=== PATIENT | female | born 1940 | race African-American/Black ===

== ENCOUNTER 2022-05-01 07:12 | Inpatient (IN) | payer OTHER, MEDICAID ==
[~2022-05-01] VITALS: Ht 160 cm; Wt 53.3 kg
[2022-05-01] MEDS ORDERED: ACETAMINOPHEN 325MG TABLET PO ONE (07:30)
[2022-05-01] MEDS ORDERED: IOHEXOL-350 100 ML BOTTLE ONE (08:16)
[2022-05-01 08:37] LABS: BASOPHILS % 0.5 % (0.0-2.0); EOSINOPHILS % 0.9 % (0.0-5.0); HEMATOCRIT. 36.2 % (36.0-48.0); LYMPHOCYTES % 14.8 % (20.0-50.0); MEAN CORPUSCULAR HEMOGLOBIN 33.1 pg (28.0-32.0); MEAN PLATELET VOLUME 6.9 fl (7.4-10.4); MONOCYTES % 8.4 % (2.0-8.0); NEUTROPHILS % 75.4 % (40.0-76.0); PLATELET 249 x1000/uL (130-400); RED BLOOD CELL COUNT 3.62 mill/uL (4.2-5.4); RED CELL DISTRIBUTION WIDTH 12.9 % (11.6-14.6)
[2022-05-01 08:48] LABS: CHLORIDE 111 mEq/L (98-107)
[2022-05-01 08:59] LABS: CREATINE KINASE 201 IU/L (26-192); ETHANOL BLOOD < 10 mg/dL
[2022-05-01] MEDS ORDERED: IPRATROPIUM/ALBUTEROL 0.5-3(2.5)MG/3ML NEB HHN PRN (10:45)
[2022-05-01] MEDS ORDERED: ONDANSETRON HCL 4MG/2ML INJ IV PRN (10:45)
[2022-05-01] MEDS ORDERED: ACETAMINOPHEN 325MG TABLET PO PRN ×2 (10:45)
[2022-05-01] MEDS ORDERED: GUAIFENESIN 200MG/10ML SUGAR FREE UDC PO PRN (10:45)
[2022-05-01] MEDS ORDERED: MAGNESIUM/ALUMINUM HYDROXIDE/SIMETHICONE 30ML UDC PO PRN (10:45)
[2022-05-01] MEDS ORDERED: CLONIDINE 0.1MG TABLET PO PRN ×2 (10:45→17:45)
[2022-05-01] MEDS ORDERED: HYDROCODONE/ACETAMINOPHEN 5/325MG TABLET PO PRN (10:45)
[2022-05-01] MEDS ORDERED: DOCUSATE SODIUM 100MG CAPSULE PO PRN (10:45)
[2022-05-01] MEDS: ENOXAPARIN 30MG/0.3ML SYR SUBCUT SCH (11:00)
[2022-05-01] MEDS ORDERED: NALOXONE HCL 0.4MG/ML VIAL IV PRN (11:00)
[2022-05-01] MEDS ORDERED: ASPIRIN 325MG EC TABLET PO NR (11:30)
[2022-05-01] MEDS: FAMOTIDINE 20MG/2ML VIAL IV SCH (11:30)
[2022-05-01 16:30] VITALS: BP 208/100
[2022-05-01] MEDS ORDERED: CLONIDINE 0.1MG TABLET PO NR (17:00)
[2022-05-01 18:00] VITALS: BP 192/90
[2022-05-01 20:00] VITALS: BP 184/90
[2022-05-01] MEDS ORDERED: IPRATROPIUM BROMIDE (0.02%) 0.5MG/2.5ML NEB HHN PRN (20:30)
[2022-05-01] MEDS ORDERED: ALBUTEROL (0.083%) 2.5MG/3ML NEB HHN PRN (20:30)
[2022-05-02] VITALS: BP 212/116
[2022-05-02] MEDS: HYDRALAZINE 20MG/ML VIAL IV PRN (00:43)
[2022-05-02 04:00] VITALS: BP 154/82
[2022-05-02 06:41] LABS: BASOPHILS % 0.2 % (0.0-2.0); EOSINOPHILS % 0.5 % (0.0-5.0); HEMATOCRIT. 38.2 % (36.0-48.0); HEMOGLOBIN. 13.1 g/dL (12.0-16.0); LYMPHOCYTES % 12.6 % (20.0-50.0); MEAN CORPUSCULAR HEMOGLOBIN 33.5 pg (28.0-32.0); MEAN CORPUSCULAR VOLUME 97.7 fL (81.0-99.0); MEAN PLATELET VOLUME 7.3 fl (7.4-10.4); MONOCYTES % 10.1 % (2.0-8.0); NEUTROPHILS % 76.6 % (40.0-76.0); PLATELET 262 x1000/uL (130-400); RED BLOOD CELL COUNT 3.91 mill/uL (4.2-5.4)
[2022-05-02 07:00] LABS: CHLORIDE 104 mEq/L (98-107)
[2022-05-02 07:16] LABS: HDL CHOLESTEROL 92 mg/dL (40-59); LDL CHOLESTEROL 82 mg/dL (5-100); T4 FREE 0.78 ng/dL (0.76-1.46)
[2022-05-02 08:00] VITALS: BP 143/86
[2022-05-02] MEDS: FAMOTIDINE 20MG/2ML VIAL IV SCH (08:38)
[2022-05-02] MEDS: ASPIRIN 81MG TABLET PO SCH (08:38)
[2022-05-02] MEDS: KCL 20MEQ/100ML PREMIX 100 ML IV SCH ×2 (10:30→12:40)
[2022-05-02] MEDS: ENOXAPARIN 30MG/0.3ML SYR SUBCUT SCH (12:40)
[2022-05-02] MEDS: DEXT 5%/0.45% NACL 1000ML 1,000 ML IV SCH (14:34)
[2022-05-02 16:00] VITALS: BP 130/75
[2022-05-02 18:14] LABS: CHLORIDE 108 mEq/L (98-107)
[2022-05-02 20:00] VITALS: BP 162/93
[2022-05-02] MEDS ORDERED: ATORVASTATIN CALCIUM 20MG TABLET PO SCH (21:00)
[2022-05-02] MEDS: ATORVASTATIN CALCIUM 20MG TABLET PO SCH (21:50)
[2022-05-03] VITALS: BP 198/96
[2022-05-03] MEDS: HYDRALAZINE 20MG/ML VIAL IV PRN ×3 (00:50→18:15)
[2022-05-03 04:00] VITALS: BP 179/88
[2022-05-03] MEDS: DEXT 5%/0.45% NACL 1000ML 1,000 ML IV SCH ×2 (06:24→23:21)
[2022-05-03 08:00] VITALS: BP 183/91
[2022-05-03 08:03] LABS: CHLORIDE 108 mEq/L (98-107)
[2022-05-03] MEDS: FAMOTIDINE 20MG/2ML VIAL IV SCH (08:38)
[2022-05-03] MEDS: ASPIRIN 81MG TABLET PO SCH ×2 (08:39→09:00)
[2022-05-03] MEDS: AMLODIPINE 5MG TABLET PO SCH ×2 (10:00→12:10)
[2022-05-03 12:00] VITALS: BP 153/75
[2022-05-03] MEDS: ENOXAPARIN 30MG/0.3ML SYR SUBCUT SCH (12:10)
[2022-05-03 16:00] VITALS: BP 159/93
[2022-05-03 20:00] VITALS: BP 149/81
[2022-05-03] MEDS: ATORVASTATIN CALCIUM 20MG TABLET PO SCH (21:00)
[2022-05-04] VITALS: BP 164/81
[2022-05-04] MEDS: HYDRALAZINE 20MG/ML VIAL IV PRN (01:19)
[2022-05-04 04:00] VITALS: BP 152/94
[2022-05-04 07:22] LABS: CHLORIDE 104 mEq/L (98-107)
[2022-05-04 08:00] VITALS: BP 157/79
[2022-05-04] MEDS: FAMOTIDINE 20MG/2ML VIAL IV SCH (09:06)
[2022-05-04] MEDS: CLOPIDOGREL 75MG TABLET PO SCH (09:07)
[2022-05-04] MEDS: AMLODIPINE 5MG TABLET PO SCH (09:07)
[2022-05-04] MEDS: ASPIRIN 81MG TABLET PO SCH (09:08)
[2022-05-04] MEDS: ENOXAPARIN 30MG/0.3ML SYR SUBCUT SCH (11:00)
[2022-05-04 16:05] VITALS: BP 162/78
[2022-05-04] MEDS: DEXT 5%/0.45% NACL 1000ML 1,000 ML IV SCH (16:24)
[2022-05-04 18:20] VITALS: BP 151/79
[2022-05-04 20:00] VITALS: BP 146/78
[2022-05-04] MEDS: ATORVASTATIN CALCIUM 20MG TABLET PO SCH (21:00)
[2022-05-05] VITALS (7 sets, daily range): BP systolic 108–167; BP diastolic 49–85
[2022-05-05 08:02] LABS: HEMOGLOBIN. 11.5 g/dL (12.0-16.0); MEAN CORPUSCULAR HEMOGLOBIN 34.4 pg (28.0-32.0); MEAN CORPUSCULAR VOLUME 98.4 fL (81.0-99.0); MEAN PLATELET VOLUME 7.1 fl (7.4-10.4); PLATELET 233 x1000/uL (130-400); RED BLOOD CELL COUNT 3.36 mill/uL (4.2-5.4); RED CELL DISTRIBUTION WIDTH 12.3 % (11.6-14.6)
[2022-05-05] MEDS: ASPIRIN 81MG TABLET PO SCH (08:13)
[2022-05-05] MEDS: AMLODIPINE 5MG TABLET PO SCH (08:13)
[2022-05-05] MEDS: CLOPIDOGREL 75MG TABLET PO SCH (08:13)
[2022-05-05] MEDS: FAMOTIDINE 20MG TABLET PO SCH (08:13)
[2022-05-05] MEDS: DEXT 5%/0.45% NACL 1000ML 1,000 ML IV SCH (08:18)
[2022-05-05 08:49] LABS: CHLORIDE 111 mEq/L (98-107)
[2022-05-05 08:56] LABS: PHOSPHORUS 2.6 mg/dL (2.5-4.9)
[2022-05-05] MEDS: ENOXAPARIN 30MG/0.3ML SYR SUBCUT SCH (11:40)
[2022-05-05] MEDS: HYDRALAZINE 20MG/ML VIAL IV PRN (13:22)
[2022-05-05] MEDS: ATORVASTATIN CALCIUM 20MG TABLET PO SCH (21:03)
[2022-05-05 21:46] LABS: PLATELET ESTIMATE NORMAL
[2022-05-06] VITALS: BP 147/60
[2022-05-06] MEDS: DEXT 5%/0.45% NACL 1000ML 1,000 ML IV SCH (01:50)
[2022-05-06 04:00] VITALS: BP 115/57
[2022-05-06 08:00] VITALS: BP 176/72
[2022-05-06 08:25] LABS: CHLORIDE 110 mEq/L (98-107)
[2022-05-06] MEDS: ASPIRIN 81MG TABLET PO SCH (09:10)
[2022-05-06] MEDS: CLOPIDOGREL 75MG TABLET PO SCH (09:12)
[2022-05-06] MEDS: FAMOTIDINE 20MG TABLET PO SCH (09:12)
[2022-05-06] MEDS: AMLODIPINE 5MG TABLET PO SCH (09:12)
[2022-05-06] MEDS: HYDRALAZINE 20MG/ML VIAL IV PRN ×2 (09:14→17:16)
[2022-05-06] MEDS: ENOXAPARIN 30MG/0.3ML SYR SUBCUT SCH (10:16)
[2022-05-06 12:00] VITALS: BP 149/70
[2022-05-06 16:00] VITALS: BP 149/83
[2022-05-06] MEDS: LOSARTAN POTASSIUM 25 MG TABLET PO SCH ×2 (17:00→17:15)
[2022-05-06 20:00] VITALS: BP 148/62
[2022-05-06] MEDS: ATORVASTATIN CALCIUM 20MG TABLET PO SCH (21:16)
[2022-05-07 00:31] VITALS: BP 107/65
[2022-05-07 04:00] VITALS: BP 177/80
[2022-05-07] MEDS: HYDRALAZINE 20MG/ML VIAL IV PRN (06:04)
[2022-05-07 08:06] VITALS: BP 133/61
[2022-05-07] MEDS: FAMOTIDINE 20MG TABLET PO SCH (08:11)
[2022-05-07] MEDS: ASPIRIN 81MG TABLET PO SCH (08:12)
[2022-05-07] MEDS: AMLODIPINE 5MG TABLET PO SCH (08:12)
[2022-05-07] MEDS: CLOPIDOGREL 75MG TABLET PO SCH (08:12)
[2022-05-07] MEDS ORDERED: LOSA25TA3 PO (08:52)
[2022-05-07] MEDS ORDERED: ATOR20TA PO (08:52)
[2022-05-07] MEDS ORDERED: AMLO5TAB88 PO (08:52)
[2022-05-07] MEDS ORDERED: CLOP75TA15 PO (08:52)
[2022-05-07] MEDS ORDERED: ASPI-1160 PO (08:52)
[2022-05-07 09:42] LABS: VITAMIN B12 SERUM 634 pg/mL (211-911)
[2022-05-07 12:00] VITALS: BP 125/62
[2022-05-07] MEDS: ENOXAPARIN 30MG/0.3ML SYR SUBCUT SCH (13:08)
[2022-05-07 16:00] VITALS: BP 148/83
[2022-05-07] MEDS: LOSARTAN POTASSIUM 25 MG TABLET PO SCH (18:31)
[2022-05-07 20:00] VITALS: BP 153/77
[2022-05-07] MEDS: ATORVASTATIN CALCIUM 20MG TABLET PO SCH (21:13)
[2022-05-08] VITALS: BP 110/90
[2022-05-08 04:00] VITALS: BP 150/77
[2022-05-08 08:00] VITALS: BP 148/68
[2022-05-08] MEDS: CLOPIDOGREL 75MG TABLET PO SCH (09:01)
[2022-05-08] MEDS: ASPIRIN 81MG TABLET PO SCH (09:01)
[2022-05-08] MEDS: FAMOTIDINE 20MG TABLET PO SCH (09:01)
[2022-05-08] MEDS: AMLODIPINE 5MG TABLET PO SCH (09:02)
[2022-05-08 12:00] VITALS: BP 127/78
[2022-05-08] MEDS: ENOXAPARIN 30MG/0.3ML SYR SUBCUT SCH (12:19)
[2022-05-08 16:00] VITALS: BP 137/61
[2022-05-08] MEDS: LOSARTAN POTASSIUM 25 MG TABLET PO SCH (17:22)
[2022-05-08 20:00] VITALS: BP 115/70
[2022-05-08] MEDS: ATORVASTATIN CALCIUM 20MG TABLET PO SCH (22:27)
[2022-05-09] VITALS (7 sets, daily range): BP systolic 107–171; BP diastolic 65–87
[2022-05-09] MEDS: AMLODIPINE 5MG TABLET PO SCH (09:00)
[2022-05-09] MEDS: FAMOTIDINE 20MG TABLET PO SCH (09:00)
[2022-05-09] MEDS: CLOPIDOGREL 75MG TABLET PO SCH (09:46)
[2022-05-09] MEDS: ASPIRIN 81MG TABLET PO SCH (09:46)
[2022-05-09] MEDS: ENOXAPARIN 30MG/0.3ML SYR SUBCUT SCH (12:31)
[2022-05-09] MEDS: LOSARTAN POTASSIUM 25 MG TABLET PO SCH (18:05)
[2022-05-09] MEDS: ATORVASTATIN CALCIUM 20MG TABLET PO SCH (21:03)
[2022-05-10] VITALS: BP 130/60
[2022-05-10 04:00] VITALS: BP 127/75
[2022-05-10 08:19] VITALS: BP 136/81
[2022-05-10] MEDS: CLOPIDOGREL 75MG TABLET PO SCH (10:14)
[2022-05-10] MEDS: ASPIRIN 81MG TABLET PO SCH (10:14)
[2022-05-10] MEDS: FAMOTIDINE 20MG TABLET PO SCH (10:14)
[2022-05-10] MEDS: AMLODIPINE 5MG TABLET PO SCH (10:14)
[2022-05-10] MEDS: ENOXAPARIN 30MG/0.3ML SYR SUBCUT SCH (10:15)
[2022-05-10 12:15] VITALS: BP 147/63
[2022-05-10 15:59] VITALS: BP 138/71
[2022-05-10] MEDS: LOSARTAN POTASSIUM 25 MG TABLET PO SCH (18:05)
[2022-05-10 20:00] VITALS: BP 125/71
[2022-05-10] MEDS: ATORVASTATIN CALCIUM 20MG TABLET PO SCH ×2 (21:01→21:02)
[2022-05-11] VITALS: BP 142/73
[2022-05-11 04:00] VITALS: BP 145/71
[2022-05-11 06:06] LABS: HEMOGLOBIN. 9.9 g/dL (12.0-16.0); MEAN CORPUSCULAR HEMOGLOBIN 33.7 pg (28.0-32.0); MEAN CORPUSCULAR VOLUME 98.9 fL (81.0-99.0); MEAN PLATELET VOLUME 7.5 fl (7.4-10.4); PLATELET 301 x1000/uL (130-400); RED BLOOD CELL COUNT 2.93 mill/uL (4.2-5.4); RED CELL DISTRIBUTION WIDTH 12.6 % (11.6-14.6)
[2022-05-11 08:00] VITALS: BP 122/70
[2022-05-11] MEDS: ASPIRIN 81MG TABLET PO SCH (08:08)
[2022-05-11] MEDS: FAMOTIDINE 20MG TABLET PO SCH (08:08)
[2022-05-11] MEDS: CLOPIDOGREL 75MG TABLET PO SCH (08:08)
[2022-05-11] MEDS: AMLODIPINE 5MG TABLET PO SCH (08:08)
[2022-05-11 09:09] LABS: CHLORIDE 111 mEq/L (98-107)
[2022-05-11 09:16] LABS: PHOSPHORUS 2.8 mg/dL (2.5-4.9)
[2022-05-11] MEDS: ENOXAPARIN 30MG/0.3ML SYR SUBCUT SCH (11:22)
[2022-05-11 12:00] VITALS: BP 115/80
[2022-05-11 16:00] VITALS: BP 117/78
[2022-05-11] MEDS: LOSARTAN POTASSIUM 25 MG TABLET PO SCH (16:47)
[2022-05-11 17:36] LABS: PLATELET ESTIMATE NORMAL
[2022-05-11 20:00] VITALS: BP 139/68
[2022-05-11] MEDS: ATORVASTATIN CALCIUM 20MG TABLET PO SCH (20:57)
[2022-05-12] VITALS: BP 136/67
[2022-05-12 04:00] VITALS: BP 117/77
[2022-05-12 08:00] VITALS: BP 126/73
[2022-05-12] MEDS: FAMOTIDINE 20MG TABLET PO SCH (08:56)
[2022-05-12] MEDS: ASPIRIN 81MG TABLET PO SCH (08:56)
[2022-05-12] MEDS: CLOPIDOGREL 75MG TABLET PO SCH (09:00)
[2022-05-12] MEDS: AMLODIPINE 5MG TABLET PO SCH (09:00)
[2022-05-12 12:00] VITALS: BP 139/67
[2022-05-12] MEDS ORDERED: HYDRALAZINE 10 MG in SODIUM CHLORIDE 0.9% 49.5 ML IV PRN (13:30)
[2022-05-12 16:00] VITALS: BP 136/65
[2022-05-12 16:25] VITALS: BP 139/67
== END 2022-05-12 17:26 | DRG 64 ==
LOC: ER 07:12 → EDBEDREQ 07:40 → SUPCPDRO 10:24 → 7WST 10:35 → EDBEDREQ 10:35 → EDBEDREQTM 10:35 → UNDODISIN 05-08 19:20 → 6EST 05-11 17:25
PROVIDERS: ADMIT Internal Medicine; ATTEND Internal Medicine
PROC: 4A00X4Z Measurement of Central Nervous Electrical Activity, External Approach (ICD-10-PCS; principal; 2022-05-05)
DX: I63.9 Cerebral infarction, unspecified (principal); G93.41 Metabolic encephalopathy; E87.6 Hypokalemia; G51.0 Bell's palsy; H54.8 Legal blindness, as defined in USA; I10 Essential (primary) hypertension; Z20.822 Contact with and (suspected) exposure to COVID-19; Z86.73 Personal history of transient ischemic attack (TIA), and cerebral infarction without residual deficits
CPT/HCPCS: 36415; 70496; 70498; 70551; 71045; 80048; 80053; 80061; 80320; 82550; 82607; 82962; 83036; 83735; 83880; 84100; 84439; 84443; 84481; 84484; 85025; 87426; 92610; 93005; 93306; 95816; 97116; 97162; 97166; 97530; 99291; A6261; C1893; C9803; J0360; J1650; J3480; J3490; Q9967; G0480